=== PATIENT | male | born 1955 | race Hispanic/Latino ===

== ENCOUNTER 2018-11-06 11:15 | Emergency (ER) | payer OTHER ==
--- NOTE | 2018-11-06 11:29 | Emergency Department Report ---
Blank Doc - Documentation Documentation: This is a 63-year-old male that presents with right upper lip lac. This initial assessment/diagnostic orders/clinical plan/treatment(s) is/are subject to change based on patient's health status, clinical progression and re- assessment by fellow clinical providers in the ED. Further treatment and workup at subsequent clinical providers discretion. Patient/guardians urged not to elope from the ED as their condition may be serious if not clinically assessed and managed. Initial orders include: 1- Patient sent to [facility] for further evaluation and treatment
[2018-11-06 11:30] VITALS: BP 155/86
[2018-11-06] MEDS ORDERED: XYLOCAINE 1% 20 mL INFILTRATI ONE (12:46)
[2018-11-06] MEDS ORDERED: LET TOPICAL TP ONE (12:46)
[2018-11-06] MEDS ORDERED: NACL 0.9% IR ONE (12:46)
--- NOTE | 2018-11-06 12:46 | Emergency Department Report ---
ED Laceration HPI - HPI Chief Complaint: Wound/Laceration Stated Complaint: LIP INJURY Time Seen by Provider: 11/06/18 11:28 Location: Head Severity: moderate Tetanus Status: Not up to Date Laceration Symptoms: Yes Pain, No Foreign Body Sensation, No Numbness, No Weakness Other History: Pt is a very pleasant 63-year-old male who comes to the ER today from work. 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 He presents with a through and through lip laceration as well as fractured canines 6 and 7 ED Review of Systems ROS: Stated complaint: LIP INJURY Other details as noted in HPI Comment: All other systems reviewed and negative ED Past Medical Hx - Past Medical History Previous Medical History?: No - Surgical History Past Surgical History?: Yes Additional Surgical History: Right knee replacement. - Family History Family history: no significant - Social History Smoking Status: Never Smoker Substance Use Type: None - Medications Home Medications: Home Medications Medication Instructions Recorded Confirmed Last Taken Type Amoxicillin [Trimox CAP] 500 mg PO BID #20 capsule 11/06/18 Unknown Rx Chlorhexidine Mouthwash [Peridex] 15 ml MM BID #1 bottle 11/06/18 Unknown Rx Laceration Physical Exam - Exam General: Vital signs noted. No distress. Alert and acting appropriately. Patient is awake alert and oriented to person place and time. Pupils equal round react to light. EOMs intact. No focal neuro deficit. S1-S2. No murmur bruit or rub. No JVD. No peripheral edema. Lungs are clear to auscultation anterior and posterior. Abdomen soft and nontender. No pain with palpation or on rebound. No CVA tenderness. Full range of motion of all extremities. Mood and affect appropriate. Pt has has a upper lip injury. A bolt hit him in the lip. His teeth went through the lip. He has a laceration of the outer border of the lip that crosses the vermilion border. He also has a laceration of his upper lip inside his mouth. The tissue is contused and friable. He has cracked 2 teeth distally. There is no root exposure. He does not have the teeth remnants with him. There is no midface instability. Cheek bones nor eyes were involved. Nose not involved. Bleeding was controlled on admission. Ice was applied. ABCs are intact vital signs are stable Laceration Exam: Yes Normal Distal CMS, No Foreign Body, No Exposed Tendon, Vessel, or Nerve, No Tendon Injury ED Course Vital Signs 11/06/18 11:28 Temperature 98 F Pulse Rate 91 H Respiratory 18 Rate Blood Pressure 155/86 - Laceration /Wound Repair lip- external Wound Location: face Wound's Depth, Shape: flap, contused tissue Wound Explored: clean Irrigated w/ Saline (ccs): 50 Betadine Prep?: Yes Anesthesia: 1% Lidocaine Wound Debrided: minimal Wound Repaired With: sutures Suture Size/Type: 4:0 Number of Sutures: 4 Layer Closure?: No Deep Layer Suture Size/Type: 4:0 Sterile Dressing Applied?: Yes Progress: wounds cleaned oral care provided wound is T shaped involving the upper lip with through and through lac; loss of 2 teeth and including the leola border 2 external sutures used to hold the flap down on the external lip. One to approx the verm. border internally 2 absorbable sutures used to approx the wound edges. The lip is contused and the tissue is friable. lip internal Wound Location: head Wound Length (cm): 2 Wound's Depth, Shape: flap, stellate, contused tissue Wound Explored: clean Irrigated w/ Saline (ccs): 50 Betadine Prep?: Yes Anesthesia: 1% Lidocaine Volume Anesthetic (ccs): 2 Wound Debrided: minimal Wound Repaired With: sutures Suture Size/Type: 4:0 Number of Sutures: 2 Layer Closure?: No Progress: tolerated procedure well TOTAL 60 MINUTES SUTURE TIME . ED Medical Decision Making - Medical Decision Making medicated - see orders lip repaired- see procedure dc home with dc instructions and he will follow up with dmd. Vital Signs 11/06/18 11/06/18 11:28 13:12 Temperature 98 F Pulse Rate 91 H Respiratory 18 18 Rate Blood Pressure 155/86 Critical care attestation.: If time is entered above; I have spent that time in minutes in the direct care of this critically ill patient, excluding procedure time. ED Disposition Clinical Impression: Lip laceration, Fractured tooth, Contusion, lip Disposition: DC-01 TO HOME OR SELFCARE Is pt being admited?: No Does the pt Need Aspirin: No Condition: Stable Instructions: Laceration (ED), Absorbable Suture Care (ED) Additional Instructions: DIET TOLERATED MEDS ORDERED TODAY IN ER FOLLOW INSTRUCTIONS ON THE BOTTLE FOLLOW UP PCP WITHIN 48 HOURS TO ENSURE YOU ARE GETTING BETTER ACTIVITY TOLERATED MOTRIN OR TYLENOL FOR PAIN OR FEVER RETURN TO THE ER FOR WORSENING SYMPTOMS NOT RELIEVED BY YOUR MEDICATIONS. LIQUIDS FOR 24 HOURS NO STRAWS NO PURSING LIPS ICE TO LIP SLEEP SITTING UP IF ABLE TO MINIMIZE SWELLING MOTRIN OR TYLENOL FOR MILD PAIN YOUR PAIN MED FOR WORSENING PAIN- FOLLOW UP WITH PCP OR HERE IN ER IN ABOUT 7 DAYS TO HAVE THE 2 EXTERNAL STITCHES TAKEN OUT Prescriptions: Chlorhexidine Mouthwash [Peridex] 15 ml MM BID #1 bottle Amoxicillin [Trimox CAP] 500 mg PO BID #20 capsule Referrals: PRIMARY CARE, [Primary Care Provider] - 3-5 Days Forms: Work/School Release Form(ED) Time of Disposition: 12:46
[2018-11-06] MEDS ORDERED: CLEOCIN IM ONE (12:47)
[2018-11-06] MEDS ORDERED: NORCO 5/325 PO ONE (12:47)
== END 2018-11-06 14:50 | disposition home or self-care (01) ==
LOC: ED 11:15
DX: S01.511A Laceration without foreign body of lip, initial encounter (principal); S02.5XXA Fracture of tooth (traumatic), initial encounter for closed fracture; W22.8XXA Striking against or struck by other objects, initial encounter; Y93.9 Activity, unspecified; Y92.89 Other specified places as the place of occurrence of the external cause; Y99.8 Other external cause status
CPT/HCPCS: 96372